=== PATIENT | female | born 1950 | race Hispanic/Latino ===

== ENCOUNTER 2020-06-15 03:39 | Emergency (ER) | payer OTHER, MEDICARE ==
[2020-06-15 03:54] LABS: BASOPHILS % (AUTO) 0.2 % (0.0-5.0); EOSINOPHILS % (AUTO) 1.7 % (0.0-8.0); HEMATOCRIT 35.3 % (36-48); LYMPHOCYTES % (AUTO) 33.1 % (21.0-51.0); MEAN CORPUSCULAR HEMOGLOBIN 32.3 pg (27.0-33.0); MEAN CORPUSCULAR HGB CONC 34.3 g/dL (32.0-36.0); MEAN CORPUSCULAR VOLUME 94.1 fL (79-99); MONOCYTES % (AUTO) 7.2 % (3.0-13.0); NEUTROPHILS % (AUTO) 57.6 % (40.0-77.0); PLATELET COUNT (AUTO) 213 K/uL (130-400); RED BLOOD CELL COUNT(AUTO) 3.75 MIL/uL (4.00-5.50); RED CELL DISTRIBUTION WIDTH 12.9 % (11.0-15.5); WHITE BLOOD COUNT (AUTO) 12.2 K/uL (4.8-10.8)
[2020-06-15 03:56] LABS: APPEARANCE,URINE Cloudy (CLEAR); BILIRUBIN,URINE Negative (NEGATIVE); COLOR,URINE Orange (YELLOW); GLUCOSE, URINE (UA) Negative (NEGATIVE); KETONES,URINE Negative (NEGATIVE); LEUKOCYTE ESTERASE ,URINE Large (NEGATIVE); NITRATE,URINE Negative (NEGATIVE); OCCULT BLOOD,URINE Large (NEGATIVE); PROTEIN,URINE POS 2+ mg/dL (NEGATIVE); UROBILINOGEN,URINE 0.2 mg/dL (0.2-1.0)
[2020-06-15] MEDS ORDERED: FAMOTIDINE/PF 20 MG/2 ML VIAL IV ONE (04:02)
[2020-06-15] MEDS ORDERED: ONDANSETRON HCL 4 MG/2 ML VIAL ONE (04:02)
[2020-06-15] MEDS ORDERED: SODIUM CHLORIDE 0.9% 1000ML 1,000 ML IV ONE (04:03)
[2020-06-15 04:04] LABS: CREATININE 1.1 mg/dL (0.5-1.5); POTASSIUM 3.5 mmol/L (3.5-5.1)
[2020-06-15 04:06] LABS: INR 0.93 (0.85-1.15); PROTHROMBIN TIME 10.1 SEC (9.6-11.6)
[2020-06-15 04:08] LABS: ALBUMIN 3.7 g/dL (3.5-5.0); BILIRUBIN,TOTAL 0.6 mg/dL (0.2-1.0); TOTAL PROTEIN, SERUM 8.1 g/dL (6.0-8.3)
[2020-06-15 04:18] LABS: BACTERIA,URINE Moderate /HPF (None Seen); MUCUS,URINE None Seen LPF (None Seen); SQUAMOUS EPITHELIAL CELL,UR None Seen /HPF (0-2); WBC,URINE 51-100 /HPF (0-1)
[2020-06-15] MEDS ORDERED: CEFTRIAXONE SODIUM 1 GM ONE (05:04)
[2020-06-15] MEDS ORDERED: SODIUM CHLORIDE 0.9% 50 ML IV ONE (05:05)
== END 2020-06-15 07:22 | disposition short-term general hospital (02) ==
LOC: EDH 03:39
DX: U07.1 COVID-19 (principal); K46.0 Unspecified abdominal hernia with obstruction, without gangrene; K43.6 Other and unspecified ventral hernia with obstruction, without gangrene; E78.00 Pure hypercholesterolemia, unspecified; Z90.49 Acquired absence of other specified parts of digestive tract; Z90.710 Acquired absence of both cervix and uterus
CPT/HCPCS: 36415; 74176; 80053; 81001; 83690; 84484; 85025; 85610; 85730; 87077; 87088; 87186; 87426; 93005; 96374; 96375; 99285; J0696; J2405; J3490; J7030; U0003

== ENCOUNTER 2022-07-14 07:40 | Observation (INO) | payer OTHER, MEDICARE ==
[2022-07-13 14:54] VITALS: BP 138/60
[2022-07-13 15:13] LABS: BASOPHILS % (AUTO) 0.3 % (0.0-5.0); EOSINOPHILS % (AUTO) 2.2 % (0.0-8.0); HEMATOCRIT 31.6 % (36-48); LYMPHOCYTES % (AUTO) 43.4 % (21.0-51.0); MEAN CORPUSCULAR HEMOGLOBIN 31.3 pg (27.0-33.0); MEAN CORPUSCULAR HGB CONC 32.9 g/dL (32.0-36.0); MEAN CORPUSCULAR VOLUME 95.2 fL (79-99); MONOCYTES % (AUTO) 7.4 % (3.0-13.0); NEUTROPHILS % (AUTO) 46.4 % (40.0-77.0); PLATELET COUNT (AUTO) 227 K/uL (130-400); RED BLOOD CELL COUNT(AUTO) 3.32 MIL/uL (4.00-5.50); RED CELL DISTRIBUTION WIDTH 13.8 % (11.0-15.5); WHITE BLOOD COUNT (AUTO) 7.2 K/uL (4.8-10.8)
[2022-07-13 15:31] LABS: APPEARANCE,URINE CLEAR (CLEAR); BILIRUBIN,URINE NEGATIVE (NEGATIVE); COLOR,URINE LIGHT-YELLOW (YELLOW); GLUCOSE, URINE (UA) NEGATIVE (NEGATIVE); KETONES,URINE NEGATIVE (NEGATIVE); LEUKOCYTE ESTERASE ,URINE 500 Leu/uL (NEGATIVE); NITRATE,URINE NEGATIVE (NEGATIVE); OCCULT BLOOD,URINE SMALL (NEGATIVE); PH,URINE 5.5 (5.0-8.0); PROTEIN,URINE 20 mg/dL (NEGATIVE); UROBILINOGEN,URINE 0.2 mg/dL (0.2-1.0)
[2022-07-13 15:36] LABS: BACTERIA,URINE FEW /HPF (None Seen); MUCUS,URINE RARE LPF (None Seen); SQUAMOUS EPITHELIAL CELL,UR FEW /HPF (0-2); WBC,URINE >100 /HPF (0-1)
[2022-07-13 15:38] LABS: INR 0.99 (0.85-1.15); PROTHROMBIN TIME 10.8 SEC (9.6-11.6)
[2022-07-13 15:40] LABS: PARTIAL THROMBOPLASTIN TIME 28.6 SEC (26.3-35.5)
[2022-07-13 15:53] LABS: ALBUMIN 3.5 g/dL (3.5-5.0); CARBON DIOXIDE 24 mmol/L (21-32); CHLORIDE 106 mmol/L (101-111); CREATININE 0.9 mg/dL (0.5-1.5); CRP QUANTITATIVE < 2.00 mg/L (0.00-9.0); GLOMERULAR FILTR. RATE CALC 65 mL/min (>60); GLUCOSE,RANDOM 96 mg/dL (70-105); POTASSIUM 3.5 mmol/L (3.5-5.1); SODIUM SERUM 141 mmol/L (136-145); UREA NITROGEN, BLOOD 17 mg/dL (7-18)
[2022-07-14] VITALS (24 sets, daily range): BP systolic 12–165; BP diastolic 29–95
[~2022-07-14] VITALS: Ht 157.5 cm; Wt 79.7 kg
[~2022-07-14 07:40] MED LIST: AEC81 PO; AMLO-258 PO; ASCO100031 PO; CEFAZOLIN SODIUM 2 GM VIAL IVPB SCH; CHOL500045 PO; IBUP-2784 PO; LEVO50CA4 PO; LOSA100T58 PO; NITR100C9 PO; OXYB5TAB15 PO; PRED5TAB PO; ROSU20TA31 PO
[2022-07-14] MEDS ORDERED: LACTATED RINGERS 1000ML 1,000 ML IV ONE (08:07)
[2022-07-14] MEDS ORDERED: LATA7.5D OU (08:35)
[2022-07-14] MEDS ORDERED: TRANEXAMIC ACID 1000MG/10ML ONE (08:50)
[2022-07-14] MEDS ORDERED: ROPIVACAINE 0.5% 5MG/ML 30ML IJ ONE ×2 (08:50→12:32)
[2022-07-14] MEDS ORDERED: KETOROLAC 30MG VIAL (30MG/ML) ONE ×2 (08:51→11:24)
[2022-07-14] MEDS ORDERED: LIDOCAINE PF 100MG/5ML (2%) SYRINGE 5ML ONE (11:22)
[2022-07-14] MEDS ORDERED: DEXAMETHASONE SOD PHOSPHATE 4 MG/ML 1ML VIAL ONE (11:22)
[2022-07-14] MEDS ORDERED: PROPOFOL 10 MG/ML 20ML VIAL IV ONE (11:22)
[2022-07-14] MEDS ORDERED: MIDAZOLAM HCL 1 MG/ML 2ML VIAL ONE (11:23)
[2022-07-14] MEDS ORDERED: ONDANSETRON 4MG INJ ONE ×2 (11:23→14:29)
[2022-07-14] MEDS ORDERED: PHENYLEPHRINE HCL 10 MG/ML 1ML VIAL IV ONE (11:23)
[2022-07-14] MEDS ORDERED: FENTANYL CITRATE PF 50 MCG/1 ML 2ML VIAL ONE (11:24)
[2022-07-14] MEDS ORDERED: CEFAZOLIN SODIUM 2 GM VIAL IVPB ONE (12:15)
[2022-07-14] MEDS ORDERED: TRANEXAMIC ACID 1000MG/10ML IV ONE ×2 (12:18→13:29)
[2022-07-14] MEDS ORDERED: KETOROLAC 30MG VIAL (30MG/ML) IVP ONE (12:33)
[2022-07-14] MEDS ORDERED: GLYCOPYRROLATE 1 MG/5 ML SYRINGE ONE (13:17)
[2022-07-14] MEDS ORDERED: KETOROLAC 15MG/ML VIAL (15MG/ML) IV PRN ×2 (14:00)
[2022-07-14] MEDS ORDERED: POTASSIUM CHLORIDE 10% ELIXIR 20 MEQ/15 ML UDCUP PO PRN (14:00)
[2022-07-14] MEDS ORDERED: KCL 20 MEQ ERTAB PO PRN (14:00)
[2022-07-14] MEDS ORDERED: CYCLOBENZAPRINE HCL 10 MG TABLET PO PRN (14:00)
[2022-07-14] MEDS ORDERED: DiphenhydrAMINE HCL 50 MG/ML VIAL IVP PRN (14:00)
[2022-07-14] MEDS ORDERED: LIDOCAINE HCL-MPF 1% 2ML VIAL IV PRN (14:00)
[2022-07-14] MEDS ORDERED: POTASSIUM CHLORIDE 20MEQ/100ML 100 ML IV PRN (14:00)
[2022-07-14] MEDS ORDERED: FERROUS FUMARATE 324 MG TABLET PO PRN (14:00)
[2022-07-14] MEDS ORDERED: ONDANSETRON 4MG INJ IVP PRN (14:00)
[2022-07-14] MEDS ORDERED: MEPERIDINE-PF 25 MG/ML SYG ONE (14:29)
[2022-07-14] MEDS: 0.9%NACL 1000ML 1,000 ML IV SCH (16:47)
[2022-07-14] MEDS: DOCUSATE SODIUM 100 MG CAP PO SCH (16:47)
[2022-07-14] MEDS: GABAPENTIN 100 MG CAPSULE PO SCH ×2 (16:47→20:09)
[2022-07-14] MEDS: HYDROCODONE/ACETAMINOPHEN 5/325 MG TAB PO PRN (16:48)
[2022-07-14] MEDS: CEFAZOLIN SODIUM 1 GM VIAL IVP SCH (18:31)
[2022-07-14] MEDS: NITROFURANTOIN MONOHYD/M-CRYST 100 MG CAPSULE PO SCH (20:10)
[2022-07-14] MEDS: ASCORBIC ACID 500 MG TAB PO SCH (20:10)
[2022-07-14] MEDS: PREDNISONE 5 MG TABLET PO SCH (20:11)
[2022-07-14] MEDS: LATANOPROST 2.5 ML DROPS OU SCH (20:20)
[2022-07-14] MEDS: VITAMIN D 125MCG PO SCH (20:20)
[2022-07-15] MEDS: HYDROCODONE/ACETAMINOPHEN 5/325 MG TAB PO PRN ×4 (00:07→21:07)
[2022-07-15 00:11] VITALS: BP 132/77
[2022-07-15] MEDS: CEFAZOLIN SODIUM 1 GM VIAL IVP SCH (02:59)
[2022-07-15 03:39] VITALS: BP 147/70
[2022-07-15 05:18] LABS: HEMATOCRIT 27.4 % (36-48); MEAN CORPUSCULAR HEMOGLOBIN 31.5 pg (27.0-33.0); MEAN CORPUSCULAR HGB CONC 33.2 g/dL (32.0-36.0); MEAN CORPUSCULAR VOLUME 94.8 fL (79-99); RED BLOOD CELL COUNT(AUTO) 2.89 MIL/uL (4.00-5.50); RED CELL DISTRIBUTION WIDTH 13.6 % (11.0-15.5); WHITE BLOOD COUNT (AUTO) 11.4 K/uL (4.8-10.8)
[2022-07-15 05:32] LABS: CREATININE 0.9 mg/dL (0.5-1.5); POTASSIUM 3.9 mmol/L (3.5-5.1)
[2022-07-15] MEDS: LEVOTHYROXINE 50 MCG TABLET PO SCH (06:24)
[2022-07-15 08:00] VITALS: BP 117/59
[2022-07-15] MEDS: ASPIRIN 325MG TAB PO SCH (08:10)
[2022-07-15] MEDS: POLYETHYLENE GLYCOL 3350 17 GM POWD.PACK PO SCH (08:10)
[2022-07-15] MEDS: GABAPENTIN 100 MG CAPSULE PO SCH ×3 (08:10→19:30)
[2022-07-15] MEDS: NITROFURANTOIN MONOHYD/M-CRYST 100 MG CAPSULE PO SCH ×2 (08:10→19:30)
[2022-07-15] MEDS: AMLODIPINE 5 MG TAB PO SCH (08:10)
[2022-07-15] MEDS: 0.9%NACL 1000ML 1,000 ML IV SCH ×2 (10:00)
[2022-07-15 11:45] VITALS: BP 128/56
[2022-07-15] MEDS: LOSARTAN 100 MG TABLET PO SCH (12:00)
[2022-07-15] MEDS: DOCUSATE SODIUM 100 MG CAP PO SCH (14:00)
[2022-07-15] MEDS: CALCIUM CARB 500MG PO PRN ×2 (15:22→19:31)
[2022-07-15 15:40] VITALS: BP 138/63
[2022-07-15] MEDS: PREDNISONE 5 MG TABLET PO SCH (19:30)
[2022-07-15] MEDS: ASCORBIC ACID 500 MG TAB PO SCH (19:30)
[2022-07-15] MEDS: LATANOPROST 2.5 ML DROPS OU SCH (19:31)
[2022-07-15] MEDS: VITAMIN D 125MCG PO SCH (19:31)
[2022-07-15 20:00] VITALS: BP 143/51
[2022-07-16] VITALS: BP 125/59
[2022-07-16 04:00] VITALS: BP 148/60
[2022-07-16] MEDS: LEVOTHYROXINE 50 MCG TABLET PO SCH (05:27)
[2022-07-16] MEDS: HYDROCODONE/ACETAMINOPHEN 5/325 MG TAB PO PRN ×2 (05:28→18:13)
[2022-07-16 08:00] VITALS: BP 137/70
[2022-07-16] MEDS: NITROFURANTOIN MONOHYD/M-CRYST 100 MG CAPSULE PO SCH (08:39)
[2022-07-16] MEDS: ASPIRIN 325MG TAB PO SCH (08:39)
[2022-07-16] MEDS: GABAPENTIN 100 MG CAPSULE PO SCH ×2 (08:39→14:46)
[2022-07-16] MEDS: AMLODIPINE 5 MG TAB PO SCH (08:39)
[2022-07-16] MEDS: POLYETHYLENE GLYCOL 3350 17 GM POWD.PACK PO SCH (08:39)
[2022-07-16 11:17] VITALS: BP 153/72
[2022-07-16] MEDS: LOSARTAN 100 MG TABLET PO SCH (12:48)
[2022-07-16] MEDS: DOCUSATE SODIUM 100 MG CAP PO SCH (14:00)
[2022-07-16] MEDS ORDERED: ASPI-1026 PO (14:50)
[2022-07-16] MEDS ORDERED: POLY17PO4 PO (14:50)
[2022-07-16] MEDS ORDERED: DOCU-116 PO (14:50)
[2022-07-16] MEDS ORDERED: HYDR-4060 PO (14:50)
[2022-07-16] MEDS ORDERED: CYCL-309 PO (14:50)
[2022-07-16] MEDS ORDERED: GABA100C PO (14:50)
[2022-07-17] MEDS ORDERED: BISACODYL 10 MG SUPP.RECT RC PRN (14:00)
== END 2022-07-16 18:50 ==
LOC: DAH 07:40 → DAHIP 07:41 → DAH 07:41 → 4BH 16:26
PROVIDERS: ADMIT Student in an Organized Health Care Education/Training Program; ATTEND Student in an Organized Health Care Education/Training Program
DX: M17.11 Unilateral primary osteoarthritis, right knee (principal); Z20.822 Contact with and (suspected) exposure to COVID-19; M06.9 Rheumatoid arthritis, unspecified; Z79.899 Other long term (current) drug therapy
CPT/HCPCS: 82040; 80048 ×2; 85025; 85610; 85730; 87088; 84134; 86140; 87426; 81001; 36415 ×2; 93005; 87641; 27447; 96374; 96375; 82948 ×10; 73560; 97039 ×4; 96376; 85027; 97161; 97116 ×3; 97530 ×4; J1100; G0378 ×51; A4663; A4215 ×2; J7120; J3010; J0690 ×4; J3490 ×4; J7512 ×2; J2001; J2250; J2704; J2405 ×2; J1885 ×4; J2175; J2795 ×2; J2370; G0168; A4649 ×3; C1776; A6255; A5120; A4223; A4222; A4221

== ENCOUNTER → 2022-08-17 | Outpatient (CLI) | payer OTHER, MEDICARE ==
[~2022-08-17] MED LIST changes: -AEC81 PO; +ASPI-1026 PO; -CEFAZOLIN SODIUM 2 GM VIAL IVPB SCH; +CYCL-309 PO; +DOCU-116 PO; +GABA100C PO; +HYDR-4060 PO; +LATA7.5D OU; +POLY17PO4 PO
== END | disposition home or self-care (01) ==
LOC: RAH 13:04
PROVIDERS: ATTEND Student in an Organized Health Care Education/Training Program
DX: Z47.1 Aftercare following joint replacement surgery (principal); M25.461 Effusion, right knee; Z96.651 Presence of right artificial knee joint
CPT/HCPCS: 73700

== ENCOUNTER 2023-07-22 17:58 | Emergency (ER) | payer OTHER, MEDICARE ==
[~2023-07-22] VITALS: Ht 157.5 cm; Wt 80.7 kg
[~2023-07-22 17:58] MED LIST changes: -LOSA100T58 PO; +LOSA100T59 PO; -OXYB5TAB15 PO; +OXYB5TAB20 PO; -ROSU20TA31 PO; +ROSU20TA73 PO
[2023-07-22 19:24] LABS: RAPID GROUP A STREP negative (NEGATIVE)
[2023-07-22 19:31] LABS: SARS-CoV-2, RNA, NAAT NEGATIVE SARS CoV-2 (NEGATIVE)
[2023-07-22 19:39] LABS: INFLUENZA TYPE A Negative For Type A (NEGATIVE); INFLUENZA TYPE B Negative For Type B (NEGATIVE)
[2023-07-22 20:13] VITALS: BP 151/66; PULSE 80; RESP 17; O2SAT 96
[2023-07-22 20:34] LABS: ADD UA MICROSCOPIC YES; APPEARANCE,URINE CLOUDY (CLEAR); BILIRUBIN,URINE NEGATIVE (NEGATIVE); COLOR,URINE LIGHT-YELLOW (YELLOW); GLUCOSE, URINE (UA) NEGATIVE (NEGATIVE); KETONES,URINE NEGATIVE (NEGATIVE); LEUKOCYTE ESTERASE ,URINE 250 Leu/uL (NEGATIVE); NITRATE,URINE 2+ (NEGATIVE); OCCULT BLOOD,URINE LARGE (NEGATIVE); PH,URINE 5.5 (5.0-8.0); PROTEIN,URINE 10 mg/dL (NEGATIVE); UROBILINOGEN,URINE 0.2 mg/dL (0.2-1.0)
[2023-07-22 20:47] LABS: BACTERIA,URINE RARE /HPF (None Seen); MUCUS,URINE RARE LPF (None Seen); RBC,URINE 26-50 /HPF (0-1); SQUAMOUS EPITHELIAL CELL,UR MOD /HPF (0-2); WBC,URINE 51-100 /HPF (0-1)
== END 2023-07-22 21:12 | disposition left against medical advice (07) ==
LOC: EDH 17:58
DX: Z53.21 Procedure and treatment not carried out due to patient leaving prior to being seen by health care provider (principal); Z79.899 Other long term (current) drug therapy; Z20.822 Contact with and (suspected) exposure to COVID-19
CPT/HCPCS: 81001; 87077; 87088; 87186; 87635; 87804; 87880; 99281

== ENCOUNTER → 2023-07-27 | Outpatient (CLI) | payer OTHER, MEDICARE | END | disposition home or self-care (01) | LOC: SHCH 13:16 | PROVIDERS: ATTEND Internal Medicine Cardiovascular Disease | DX: I11.9 Hypertensive heart disease without heart failure (principal); I49.3 Ventricular premature depolarization; E78.5 Hyperlipidemia, unspecified | CPT/HCPCS: 93306 ==

== ENCOUNTER → 2023-10-06 | Outpatient (CLI) | payer OTHER, MEDICARE ==
[~2023-10-06] MED LIST changes: +IOHEXOL 350 MG/ML 100ML INFUS..BTL IV ONE
== END | disposition home or self-care (01) ==
LOC: RAH 07:40
PROVIDERS: ATTEND Internal Medicine Cardiovascular Disease
DX: I20.0 Unstable angina (principal); K80.20 Calculus of gallbladder without cholecystitis without obstruction
CPT/HCPCS: 71270; Q9967

== ENCOUNTER → 2023-12-02 | Outpatient (CLI) | payer OTHER, MEDICARE ==
[~2023-12-02] MED LIST changes: -IOHEXOL 350 MG/ML 100ML INFUS..BTL IV ONE
== END | disposition home or self-care (01) ==
LOC: SHCH 09:05
PROVIDERS: ATTEND Internal Medicine Cardiovascular Disease
DX: I70.203 Unspecified atherosclerosis of native arteries of extremities, bilateral legs (principal); I87.2 Venous insufficiency (chronic) (peripheral); I87.1 Compression of vein
CPT/HCPCS: 93925; 93970

== ENCOUNTER → 2024-05-24 | Outpatient (CLI) | payer OTHER, MEDICARE ==
[~2024-05-24] MED LIST changes: +GADOTERATE MEGLUMINE 10 MMOL/20 ML VIAL IV ONE; -ROSU20TA73 PO; +ROSU20TA98 PO
--- NOTE | 2024-05-24 15:41 | HMCIMG ---
MR HIP RIGHT WWO HISTORY: Right hip pain COMPARISON: None TECHNIQUE: MRI of the right hip was performed utilizing multiple pulse sequences in axial, coronal and sagittal planes. Patient was given 16 cc of Clariscan through intravenous route. FINDINGS: No abnormal signal intensity is seen of the visualized bony structure. No MR evidence of stress fracture, avascular necrosis or dislocation is seen. Small right hip joint space narrowing is seen. No evidence of fracture or dislocation is seen. No appreciable amount of joint effusion is seen. IMPRESSION: 1. DJD. No fracture or dislocation.
== END | disposition home or self-care (01) ==
LOC: RAH 13:01
PROVIDERS: ATTEND Physician Assistant
DX: M16.11 Unilateral primary osteoarthritis, right hip (principal); M25.551 Pain in right hip
CPT/HCPCS: 73723; A9575

== ENCOUNTER 2024-05-31 13:06 | Emergency (ER) | payer OTHER, MEDICARE ==
[~2024-05-31] VITALS: Ht 165.1 cm; Wt 77.1 kg
[~2024-05-31 13:06] MED LIST changes: -GADOTERATE MEGLUMINE 10 MMOL/20 ML VIAL IV ONE
[2024-05-31] MEDS: 0.9%NACL 1000ML 1,000 ML IV ONE (13:26)
--- NOTE | 2024-05-31 13:28 | ERN ---
General Chief Complaint: Altered Mental Status Stated Complaint: ALTERED MENTAL STATUS Time Seen by MD: 13:09 History of Present Illness Initial Comments 74-year-old female brought in by EMS for altered mentation. According to EMS, the patient was confused. Normally she is oriented, tonight she is only oriented to herself. According to family she gets frequent UTIs and we will become confused when she developed these. Patient denies any other complaints. She denies pain. Medical history: Hypertension, anemia, arthritis, frequent UTIs, DLD, hypothyroid EMS vital signs: 175/76, 76, 20, blood glucose 126. Patient received 400 L of lactated ringer CASINO MANAGER by EMS PCP: Jose Alfredo Alcaraz Allergies: Coded Allergies: No Known Drug Allergies (Verified Allergy, Unknown, 07/13/22) Home Meds Active Scripts Docusate Sodium (Colace) 100 Mg Capsule, 100 MG PO BID PRN for CONSTIPATION for 30 Days, #60 CAP 0 Refills Prov:DESIRAE AVELAR MD 07/16/22 Hydrocodone/Acetaminophen (Hydrocodon-Acetaminophen 5-325) 1 Each Tablet, 1-2 TAB PO Q6H PRN for MODERATE/SEVERE PAIN LEVEL, #56 TAB 0 Refills Prov:DESIRAE AVELAR MD 07/16/22 Polyethylene Glycol 3350 (Miralax) 17 Gm Powd.pack, 17 GM PO DAILY, #30 PACK 0 Refills Prov:DESIRAE AVELAR MD 07/16/22 Cyclobenzaprine HCl (Cyclobenzaprine HCl) 10 Mg Tablet, 5 MG PO Q8H PRN for MUSCLE SPASMS, #45 TAB 0 Refills Prov:DESIRAE AVELAR MD 07/16/22 Aspirin (Aspirin) 325 Mg Tablet, 325 MG PO DAILY, #30 TAB 0 Refills Prov:DESIRAE AVELAR MD 07/16/22 Reported Medications Mirabegron (Myrbetriq) 50 Mg Tab.er.24h, 1 TAB PO DAILY for 30 Days, #30 TAB 0 Refills 05/31/24 Nitrofurantoin Macrocrystal (Nitrofurantoin) 100 Mg Capsule, 1 CAP PO BID for 7 Days, #14 CAP 0 Refills 05/31/24 Oxybutynin Chloride (Oxybutynin Chloride) 5 Mg Tablet, 1 TAB PO DAILY for urinary discomfort for 30 Days, #60 TAB 0 Refills 05/31/24 Carvedilol (Carvedilol) 6.25 Mg Tablet, 1 TAB PO BID for 30 Days, #60 TAB 0 Refills 05/31/24 Gabapentin (Gabapentin) 100 Mg Capsule, 1 CAP PO DAILY for 30 Days, #90 CAP 0 Refills 05/31/24 Folic Acid (Folic Acid) 0.8 Mg Capsule, 1 MG PO DAILY, CAP 05/31/24 Furosemide (Furosemide) 20 Mg Tablet, 1 TAB PO BID for 30 Days, #30 TAB 0 Refills 05/31/24 Sulfasalazine (Azulfidine) 500 Mg Tablet, 1 TAB PO DAILY for 30 Days, #90 TAB 0 Refills 05/31/24 Tizanidine HCl (Tizanidine HCl) 2 Mg Tablet, 2 MG PO BID, TAB 05/31/24 Baclofen (Baclofen) 20 Mg Tablet, 1 TAB PO TID for 30 Days, #90 TAB 0 Refills 05/31/24 Latanoprost/Pf (Latanoprost 0.005% Eye Drop) 7.5 Ml Drops, 1 DROP OU HS, DROP 07/14/22 Amlodipine Besylate (Amlodipine Besylate) 10 Mg Tablet, 10 MG PO AM for 30 Days, #30 TAB 0 Refills 07/13/22 Levothyroxine Sodium (Levothyroxine) 50 Mcg Capsule, 50 MCG PO AM, CAP 07/13/22 Losartan Potassium (Losartan Potassium) 100 Mg Tablet, 100 MG PO NOON, TAB 07/13/22 Rosuvastatin Calcium (Rosuvastatin Calcium) 20 Mg Tablet, 20 MG PO HS, TAB 07/13/22 Ibuprofen (Ibuprofen 200 mg Tablet) 200 Mg Tablet, 200 MG PO TID PRN for PAIN, TAB 07/13/22 Prednisone (Prednisone) 5 Mg Tablet, 5 MG PO HS, TAB 07/13/22 Cholecalciferol (Vitamin D3) (Vitamin D3) 125 Mcg Tablet, 125 MCG PO PM, TAB 07/13/22 Ascorbic Acid (Vitamin C) 1,000 Mg Tablet, 1000 MG PO HS, TAB 07/13/22 Discontinued Reported Medications Oxybutynin Chloride (Oxybutynin Chloride) 5 Mg Tablet, 5 MG PO BID, TAB 07/13/22 Nitrofurantoin Monohyd/M-Cryst (Nitrofurantoin Brule-Mcr 100 mg) 100 Mg Capsule, 100 MG PO BID, CAP 07/13/22 Discontinued Scripts Gabapentin (Neurontin) 100 Mg Capsule, 100 MG PO TID, #90 CAP 0 Refills Prov:DESIRAE AVELAR MD 07/16/22 Past Medical History Past Medical History: Anemia, Arthritis, Hypertension, UTI Past Surgical History: Other Surgical History Other: 2 HERNIA REPAIRS ROS Dictation Unable to obtain, patient not a reliable historian. She denies any complaints currently. More altered than usual per family Physical Exam Physical Exam Dictation VITAL SIGNS: Reviewed. GENERAL APPEARANCE: Oriented to self only, confused, in no distress HEAD AND FACE: Non-traumatic. EYES: PERRL, pink conjunctivas, eyelid no trauma, anterior chamber clear. EARS: Pinnas intact and no signs of trauma or erythema. Ear canals clear and no discharge. TMs no erythema. NOSE: No discharge, no bleeding. OROPHARYNX: Mouth normal, teeth no caries, tongue pink. Pharynx clear, no erythema. Tonsils no exudates, no abscesses noted. Mucous membrane moist. NECK: Supple, non-tender, no thyromegaly, no masses, no JVD, no bruits. BREAST: Deferred. CHEST: No tenderness, no crepitus, no paradoxical movement, no retractions. LUNGS: Clear, well-ventilated, symmetric, no rales, no wheezing, no rhonchi, no stridor, good breath sounds bilaterally. HEART: Regular rate, regular rhythm, no murmur, no gallops. VASCULAR: No peripheral edema. ABDOMEN: Soft, positive bowel sounds, nondistended, no guarding, nontender, no rebound, no masses no hepatomegaly, no splenomegaly, no Goodwin's sign, no hernias. RECTAL: Deferred. GENITAL: Deferred. NEUROLOGICAL: Gross motor function intact, cranial nerves intact Kirti, able to follow commands, confused MUSCULOSKELETAL: Neck nontender, full range of motion, back nontender, full range of motion. EXTREMITIES: Nontender, full range of motion. SKIN: Color pink, dry, no turgor, no rash, no lacerations, no abrasions, no contusions. LYMPHATICS: Deferred. Results Laboratory and Microbiology Lab and Micro Result Laboratory Tests Test 05/31/24 13:29 05/31/24 13:41 White Blood Count 9.1 K/uL (4.8-10.8) Red Blood Count 3.84 MIL/uL (4.00-5.50) L Hemoglobin 12.4 g/dL (12.0-16.0) Hematocrit 37.2 % (36-48) Mean Corpuscular Volume 96.9 fL (79-99) Mean Corpuscular Hemoglobin 32.3 pg (27.0-33.0) Mean Corpuscular Hemoglobin Concent 33.3 g/dL (32.0-36.0) Red Cell Distribution Width 13.8 % (11.0-15.5) Platelet Count 264 K/uL (130-400) Mean Platelet Volume 10.7 fL (7.5-10.5) H Immature Granulocyte % (Auto) 0.3 % (0-1) Neutrophils (%) (Auto) 60.4 % (40.0-77.0) Lymphocytes (%) (Auto) 28.9 % (21.0-51.0) Monocytes (%) (Auto) 9.5 % (3.0-13.0) Eosinophils (%) (Auto) 0.6 % (0.0-8.0) Basophils (%) (Auto) 0.3 % (0.0-5.0) Neutrophils # (Auto) 5.5 K/uL (1.8-7.7) Lymphocytes # (Auto) 2.6 K/uL (1.0-4.8) Monocytes # (Auto) 0.9 K/uL (0.1-1.0) Eosinophils # (Auto) 0.05 K/uL (0.00-0.70) Basophils # (Auto) 0.03 K/uL (0.00-0.20) Absolute Immature Granulocyte (auto 0.03 K/uL (0-1) Nucleated Red Blood Cells 0.0 % (0.0-0.19) Sodium Level 146 mmol/L (136-145) H Potassium Level 3.9 mmol/L (3.5-5.1) Chloride Level 108 mmol/L (101-111) Carbon Dioxide Level 31 mmol/L (21-32) Blood Urea Nitrogen 11 mg/dL (7-18) Creatinine 0.9 mg/dL (0.5-1.0) Glomerular Filtration Rate Calc 67 mL/min (>90) Random Glucose 109 mg/dL (70-105) H Total Calcium 9.4 mg/dL (8.5-10.1) Magnesium Level 1.80 mg/dL (1.80-2.40) Ammonia < 10 umol/L (11-32) L Total Creatine Kinase 87 U/L (21-232) Troponin I High Sensitivity 15.9 ng/L (4-50) B-Type Natriuretic Peptide 277 pg/mL (0-100) H Urine Color LIGHT-YELLOW (YELLOW) Urine Appearance CLEAR (CLEAR) Urine pH 7.0 (5.0-8.0) Urine Specific Logan 1.007 (1.001-1.031) Urine Protein NEGATIVE mg/dL (NEGATIVE) Urine Glucose (UA) NEGATIVE mg/dL (NEGATIVE) Urine Ketones NEGATIVE mg/dL (NEGATIVE) Urine Occult Blood NEGATIVE (NEGATIVE) Urine Nitrate 1+ (NEGATIVE) H Urine Bilirubin NEGATIVE mg/dL (NEGATIVE) Urine Urobilinogen 0.2 mg/dL (0.2-1.0) Urine Leukocyte Esterase NEGATIVE Ector/uL Urine RBC None /HPF (0-1) Urine WBC 0-1 /HPF (0-1) Urine Squamous Epithelial Cells RARE /HPF (0-2) Urine Bacteria RARE /HPF (None Seen) MDM CC: altered mental state, weakness Independent Historian: EMS & son. Patient confused, only alert to self. Son provided much of the history. Limitations by social determinates of health: none Comorbidities: advanced age, HTN, anemia, arhtritis, frequent UTIs. Ddx: UTI, infection, dehydration, stroke, brain bleed, electrolyte abnormality, ACS, other VS: HTN, 176/76, otherwise stable. EKG (independently interpreted by me): NSR, rate 73, multifocal PVCs, LAD, delayed RWP, LVH. No STEMI. Labs (ordered & interpreted by me): CBC normal. BMP shows normal electrolytes, glucose normal. Ammonia normal, CK normal, troponin normal, BNP mildly elevated 277. CXR( independently interpreted by me): borderline cardiomegaly, no focal infiltrates. UA: 1+ nitrites, otherwise normal. CT head (independently interpreted by me): No acute bleed. Patient has a UTI. She received 1 L normal saline and a dose of IV Rocephin. I considered admission for this patient, but I had a long conversation with the son. He reports that he prefers to go home. The patient also prefers to go home. She gets very anxious in the ER in the hospital and does not want to stay at all. He has stable vital signs, she is at baseline mentation currently. She has stable labs. She is p.o. tolerant. Every dose of Rocephin here, we will discharge her with cefpodoxime and recommend PCP follow up. This is what the family prefers. I think this is reasonable this time. We will DC. REASON: altered ORDERING PHYSICIAN: RODGER BARTLETT DO PROCEDURE: CXR1VW - CHEST 1VW CHEST 1VW REASON: altered COMPARISON: 10/06/2023 FINDINGS: Single view of the chest was obtained. Lungs are clear. Heart size is normal. There is no pulmonary vascular congestion. Mediastinum and bony thorax appear unremarkable. IMPRESSION: 1. Normal single view chest x-ray. REASON: altered ORDERING PHYSICIAN: RODGER BARTLETT DO PROCEDURE: HEAD WO - CT HEAD/BRAIN W/O CONTRAST Exam: NONCONTRAST CT BRAIN REASON: altered. COMPARISON: None. TECHNIQUE: Images are obtained from vertex to the skull base. The exam was performed without IV contrast. FINDINGS: There is normal appearing brain parenchyma. There are no focal mass lesions. There is is no evidence of intracranial hemorrhage or acute stroke. Ventricles and sulci appear normal. Posterior fossa and brainstem structures are unremarkable. Paranasal sinuses and remaining extracranial soft tissues appear normal as well. IMPRESSION: 1. Normal noncontrast CT brain. ED Course Orders Procedure Category Date Status Time Ammonia LAB 05/31/24 Complete 13:09 Cardiac Panel LAB 05/31/24 Complete 13:09 Cbc With Differential LAB 05/31/24 Complete 13:09 Basic Metabolic Panel LAB 05/31/24 Complete 13:09 B-Type Natriuretic LAB 05/31/24 Complete Peptide 13:09 Magnesium LAB 05/31/24 Complete 13:09 Urinalysis Profile LAB 05/31/24 Complete 13:09 Ct Head/Brain W/O CT 05/31/24 Resulted Contrast 13:09 12 Lead Ekg Tracing- EKG 05/31/24 Logged Technical 13:09 Chest 1vw RAD 05/31/24 Resulted 13:09 0.9%Nacl 1000ml (Ns PHA 05/31/24 Complete 1000ml) 13:30 Culture Urine WAYNE 05/31/24 In Process 13:55 Ceftriaxone 1g Vial PHA 05/31/24 Complete (Rocephine 1g Inj) 14:30 Current Medications Medications (Trade) Dose Ordered Sig/Julieta Route PRN Reason Start Time Stop Time Status Last Admin Dose Admin Ceftriaxone Sodium (ROCEphine 1G INJ) 1 gm ONCE ONCE IVPB 05/31/24 14:30 05/31/24 14:31 DC Sodium Chloride 1,000 ml @ 0 mls/hr ONCE ONCE IV 05/31/24 13:30 05/31/24 13:31 DC 05/31/24 13:26 Vital Signs Date Time Temp Pulse Resp B/P (MAP) Pulse Ox O2 Delivery O2 Flow Rate FiO2 05/31/24 13:43 69 18 176/101 100 Room Air* 0 21 05/31/24 13:07 99.0 80 20 176/76 99 Room Air DX & DISP Disposition: Discharge Departure Impression: Primary Impression: UTI (urinary tract infection) Condition: Stable Scripts Cefpodoxime Proxetil (Cefpodoxime Proxetil) 200 Mg Tablet 200 MG PO BID for 10 Days, #20 TAB Prov: RODGER BARTLETT DO 05/31/24 Additional Instructions: Jordan is a has a urinary tract infection. This may be causing her symptoms. Her vital signs have been stable in the ER. Her lab work (CBC, BNP, liver enzymes, lipase, troponin) is stable. Her urinalysis shows signs of infection. The CT scan of her head is normal. Her chest x-ray and EKG are stable. She received a dose of IV Rocephin (antibiotic) here in the emergency department. I have prescribed cefpodoxime, which is an antibiotic. She should take this twice per day for the next ten days. I recommend that she follows up with her primary doctor in 72 hours for re- evaluation. Please return to the emergency department if you have any concerns. Referrals: JOSE ALFREDO ALCARAZ MD (PCP) RODGER BARTLETT DO May 31, 2024 13:28
[2024-05-31 13:34] LABS: BASOPHILS # (AUTO) 0.03 K/uL (0.00-0.20); BASOPHILS % (AUTO) 0.3 % (0.0-5.0); EOSINOPHILS # (AUTO) 0.05 K/uL (0.00-0.70); EOSINOPHILS % (AUTO) 0.6 % (0.0-8.0); HEMATOCRIT 37.2 % (36-48); IMMATURE GRANULOCYTE ABSOLUTE 0.03 K/uL (0-1); LYMPHOCYTES # (AUTO) 2.6 K/uL (1.0-4.8); LYMPHOCYTES % (AUTO) 28.9 % (21.0-51.0); MEAN CORPUSCULAR HEMOGLOBIN 32.3 pg (27.0-33.0); MEAN CORPUSCULAR HGB CONC 33.3 g/dL (32.0-36.0); MEAN CORPUSCULAR VOLUME 96.9 fL (79-99); MONOCYTES # (AUTO) 0.9 K/uL (0.1-1.0); MONOCYTES % (AUTO) 9.5 % (3.0-13.0); NEUTROPHILS # (AUTO) 5.5 K/uL (1.8-7.7); NEUTROPHILS % (AUTO) 60.4 % (40.0-77.0); PLATELET COUNT (AUTO) 264 K/uL (130-400); RED BLOOD CELL COUNT(AUTO) 3.84 MIL/uL (4.00-5.50); RED CELL DISTRIBUTION WIDTH 13.8 % (11.0-15.5); WHITE BLOOD COUNT (AUTO) 9.1 K/uL (4.8-10.8)
[2024-05-31 13:45] LABS: CARBON DIOXIDE 31 mmol/L (21-32); CHLORIDE 108 mmol/L (101-111); CREATININE 0.9 mg/dL (0.5-1.0); GLOMERULAR FILTR. RATE CALC 67 mL/min (>90); GLUCOSE,RANDOM 109 mg/dL (70-105); POTASSIUM 3.9 mmol/L (3.5-5.1); SODIUM SERUM 146 mmol/L (136-145); UREA NITROGEN, BLOOD 11 mg/dL (7-18)
[2024-05-31 13:53] LABS: CREATINE KINASE, TOTAL 87 U/L (21-232)
[2024-05-31 13:54] LABS: APPEARANCE,URINE CLEAR (CLEAR); BILIRUBIN,URINE NEGATIVE (NEGATIVE); COLOR,URINE LIGHT-YELLOW (YELLOW); GLUCOSE, URINE (UA) NEGATIVE (NEGATIVE); KETONES,URINE NEGATIVE (NEGATIVE); LEUKOCYTE ESTERASE ,URINE NEGATIVE Leu/uL (NEGATIVE); NITRATE,URINE 1+ (NEGATIVE); OCCULT BLOOD,URINE NEGATIVE (NEGATIVE); PROTEIN,URINE NEGATIVE (NEGATIVE); UROBILINOGEN,URINE 0.2 mg/dL (0.2-1.0)
[2024-05-31 13:55] LABS: ADD UA MICROSCOPIC YES
[2024-05-31 13:55] LABS: B-TYPE NATRIURETIC PEPTIDE 277 pg/mL (0-100)
[2024-05-31 13:59] LABS: AMMONIA < 10 umol/L (11-32)
[2024-05-31 14:01] LABS: BACTERIA,URINE RARE /HPF (None Seen); MUCUS,URINE RARE LPF (None Seen); SQUAMOUS EPITHELIAL CELL,UR RARE /HPF (0-2); WBC,URINE 0-1 /HPF (0-1)
[2024-05-31] MEDS ORDERED: MIRA50TA PO (14:07)
[2024-05-31] MEDS ORDERED: OXYB5TAB20 PO (14:07)
[2024-05-31] MEDS ORDERED: GABA-529 PO (14:07)
[2024-05-31] MEDS ORDERED: BACL20TA PO (14:07)
[2024-05-31] MEDS ORDERED: FURO20TA4 PO (14:07)
[2024-05-31] MEDS ORDERED: TIZA-194 PO (14:07)
[2024-05-31] MEDS ORDERED: SULF500T PO (14:07)
[2024-05-31] MEDS ORDERED: FOLI0.8C PO (14:07)
[2024-05-31] MEDS ORDERED: CARV6.25 PO (14:07)
[2024-05-31] MEDS ORDERED: NITR100C PO (14:07)
--- NOTE | 2024-05-31 14:20 | HMCIMG ---
CHEST 1VW REASON: altered COMPARISON: 10/06/2023 FINDINGS: Single view of the chest was obtained. Lungs are clear. Heart size is normal. There is no pulmonary vascular congestion. Mediastinum and bony thorax appear unremarkable. IMPRESSION: 1. Normal single view chest x-ray.
--- NOTE | 2024-05-31 14:41 | HMCIMG ---
Exam: NONCONTRAST CT BRAIN REASON: altered. COMPARISON: None. TECHNIQUE: Images are obtained from vertex to the skull base. The exam was performed without IV contrast. FINDINGS: There is normal appearing brain parenchyma. There are no focal mass lesions. There is is no evidence of intracranial hemorrhage or acute stroke. Ventricles and sulci appear normal. Posterior fossa and brainstem structures are unremarkable. Paranasal sinuses and remaining extracranial soft tissues appear normal as well. IMPRESSION: 1. Normal noncontrast CT brain. CT was performed with one or more following dose reduction techniques: automated exposure control, adjustment of the mA and kv according to patient's size, or use of a iterative reconstruction technique.
[2024-05-31] MEDS ORDERED: CEFP200T14 PO (15:07)
--- NOTE | 2024-05-31 15:38 | EKG ---
[facility] Test Date: 2024-05-31 Test Time: 13:29:03 Pat Name: EDWARD THOMAS Department: [facility] Room: Gender: F Home Office Claims Examiner: COY MARREROB: 1950 Requested By: RODGER BARTLETT Order Number: [id number] Reading MD: Yves Dueñas Measurements Intervals Jackson Rate: 73 P: 44 CO: 144 QRS: -48 QRSD: 121 T: 86 QT: 398 QTc: 442 Interpretive Statements Sinus rhythm Multiform ventricular premature complexes Nonspecific IVCD with LAD Left ventricular hypertrophy ST elevation, consider inferior injury Compared to ECG 07/13/2022 14:49:33 Ventricular premature complex(es) now present Intraventricular conduction delay now present ST (T wave) deviation now present Myocardial infarct finding now present Q waves no longer present Electronically Signed On 05-31-2024 19:35:33 IT GENERALIST by Yves Dueñas Please click the below link to view image of tracing.
[2024-05-31] MEDS: cefTRIAXone 1G VIAL IVPB ONE (15:47)
[2024-05-31] MEDS: hydrALAZine 20MG/ML VIAL IV ONE (15:50)
[2024-05-31 16:16] VITALS: BP 175/78; PULSE 80; RESP 16; TEMP 98.2; O2SAT 99
--- NOTE | 2024-05-31 16:17 | NUR ---
DISCHARGE VITALS REVIEW WITH MD. PATIENT CLEARED TO DISCHARGE HOME WITH ABX TREATMENT. PATIENT EDUCATION PROVIDED ON ABX COMPLIANCE. PATIENTS FAMILY VERBALIZES UNDERSTANDING AND STATES NO ADDITIONAL QUESTIONS AT THIS TIME.
== END 2024-05-31 16:18 | disposition home or self-care (01) ==
LOC: EDH 13:06
DX: N39.0 Urinary tract infection, site not specified (principal); D64.9 Anemia, unspecified; E03.9 Hypothyroidism, unspecified; I10 Essential (primary) hypertension; M19.90 Unspecified osteoarthritis, unspecified site; Z79.52 Long term (current) use of systemic steroids; Z79.82 Long term (current) use of aspirin; Z79.899 Other long term (current) drug therapy; Z98.890 Other specified postprocedural states
CPT/HCPCS: 99285; 96374; 70450; 96361; 71045; 96375; 82550; 83735; 84484; 80048; 83880; 82140; 85025; 87086 ×2; 87186; 81001; 36415; 93005; J7030; J0360; J0696

== ENCOUNTER 2024-12-12 05:51 | Observation (INO) | payer OTHER, MEDICAID ==
[2024-12-07 13:35] LABS: BASOPHILS # (AUTO) 0.06 K/uL (0.00-0.20); BASOPHILS % (AUTO) 0.5 % (0.0-5.0); EOSINOPHILS # (AUTO) 0.14 K/uL (0.00-0.70); EOSINOPHILS % (AUTO) 1.2 % (0.0-8.0); HEMATOCRIT 33.7 % (36-48); IMMATURE GRANULOCYTE ABSOLUTE 0.03 K/uL (0-1); LYMPHOCYTES # (AUTO) 4.9 K/uL (1.0-4.8); LYMPHOCYTES % (AUTO) 43.9 % (21.0-51.0); MEAN CORPUSCULAR HEMOGLOBIN 31.9 pg (27.0-33.0); MEAN CORPUSCULAR HGB CONC 32.3 g/dL (32.0-36.0); MEAN CORPUSCULAR VOLUME 98.5 fL (79-99); MONOCYTES # (AUTO) 0.9 K/uL (0.1-1.0); MONOCYTES % (AUTO) 7.8 % (3.0-13.0); NEUTROPHILS # (AUTO) 5.2 K/uL (1.8-7.7); NEUTROPHILS % (AUTO) 46.3 % (40.0-77.0); PLATELET COUNT (AUTO) 209 K/uL (130-400); RED BLOOD CELL COUNT(AUTO) 3.42 MIL/uL (4.00-5.50); RED CELL DISTRIBUTION WIDTH 13.8 % (11.0-15.5); WHITE BLOOD COUNT (AUTO) 11.2 K/uL (4.8-10.8)
[2024-12-07 13:43] LABS: ALBUMIN 3.5 g/dL (3.5-5.0); CREATININE 0.8 mg/dL (0.5-1.0); POTASSIUM 3.3 mmol/L (3.5-5.1)
[2024-12-07 13:47] LABS: INR 1.08 (0.85-1.15); PROTHROMBIN TIME 11.4 SEC (9.6-11.6)
[2024-12-07 13:49] LABS: PARTIAL THROMBOPLASTIN TIME 25.6 SEC (26.3-35.5)
[2024-12-07 14:55] VITALS: BP_SYST 191; BP_SYST 201; BP_SYST 224; BP_DIAS 78; BP_DIAS 80; PULSE 60; RESP 18; TEMP 97.2
--- NOTE | 2024-12-11 13:15 | NUR ---
REPORTED CBC RESULTS (WBC: 11.2, H&H: 10.9/33.7) TO DR. AVELAR. AWAITING RESPONSE
--- NOTE | 2024-12-11 15:15 | NUR ---
DR. AVELAR AWARE OF CBC RESULTS. OK TO PROCEED
[~2024-12-12] VITALS: Ht 160 cm; Wt 78.0 kg
[2024-12-12] VITALS (32 sets, daily range): BP systolic 109–185; BP diastolic 50–95; PULSE 47–63; RESP 13–20; TEMP 96.9–98.4; O2SAT 96–99
[~2024-12-12 05:51] MED LIST changes: +BACL20TA PO; +CARV6.25 PO; +CEFP200T14 PO; +FOLI0.8C PO; +FURO20TA4 PO; +GABA-529 PO; -GABA100C PO; -LEVO50CA4 PO; +LEVO50CA5 PO; +MIRA50TA PO; +NITR100C PO; -NITR100C9 PO; +SULF500T PO; +TIZA-194 PO
[2024-12-12] MEDS ORDERED: BUPIvacaine/PF 0.5% 30ML VIAL ONE (06:36)
[2024-12-12] MEDS ORDERED: ROPivacaine 0.5% 5MG/ML 30ML ONE (06:41)
[2024-12-12] MEDS ORDERED: ketaMINE 50MG/ML SYRINGE 50 MG/ML DISP.SYRIN ONE (06:42)
[2024-12-12] MEDS ORDERED: LIDOCAINE PF 100MG/5ML (2%) SYRINGE 5ML ONE (06:47)
[2024-12-12] MEDS ORDERED: proPOFol 10 MG/ML 20ML VIAL IV ONE (06:48)
[2024-12-12] MEDS ORDERED: rocuRONium bROMide 10MG/1ML 5ML VL ONE (06:48)
[2024-12-12] MEDS ORDERED: FENTanyl CITRate PF 50 MCG/1 ML 2ML VIAL ONE (06:48)
[2024-12-12 06:56] LABS: APPEARANCE,URINE CLOUDY (CLEAR); BILIRUBIN,URINE NEGATIVE (NEGATIVE); COLOR,URINE YELLOW (YELLOW); GLUCOSE, URINE (UA) NEGATIVE (NEGATIVE); KETONES,URINE NEGATIVE (NEGATIVE); LEUKOCYTE ESTERASE ,URINE 250 Leu/uL (NEGATIVE); NITRATE,URINE 1+ (NEGATIVE); PH,URINE 5.5 (5.0-8.0); PROTEIN,URINE 10 mg/dL (NEGATIVE); UROBILINOGEN,URINE 0.2 mg/dL (0.2-1.0)
[2024-12-12 06:59] LABS: MUCUS,URINE RARE LPF (None Seen); OTHER CASTS, URINE 3 /LPF (None Seen); SQUAMOUS EPITHELIAL CELL,UR MANY /HPF (0-2); WBC,URINE 26-50 /HPF (0-1)
[2024-12-12 07:00] LABS: BACTERIA,URINE Moderate /HPF (None Seen)
[2024-12-12] MEDS ORDERED: LATA2.5D14 OP (07:16)
[2024-12-12] MEDS ORDERED: FOLI1 PO (07:16)
[2024-12-12] MEDS ORDERED: PREG25CA19 PO (07:16)
[2024-12-12] MEDS ORDERED: CARV25TA PO (07:16)
[2024-12-12] MEDS ORDERED: MELO-106 PO (07:16)
--- NOTE | 2024-12-12 07:25 | DS ---
Discharge Summary Hospital Course Summary: The patient was admitted to the hospital postoperatively on 12/12/2024 after undergoing left total knee arthroplasty. They did well with routine postoperative pain control. They worked well with physical therapy. They developed some acute blood loss anemia but remained asymptomatic. The hospital course was otherwise uncomplicated. They were subsequently able to be discharged on postoperative day [] once discharge arrangements were made with SNF. Grades 1 6 Tutor(s): None Procedure(s): Left total knee arthroplasty, 12/12/2024 Assessment/Plan: ASSESSMENT: Status post left total knee arthroplasty Acute blood loss anemia PLAN: See discharge instructions Discharge Instructions: Begin working with physical therapy at the facility. Dressing may be removed 12/14/2024 and left open to air. Showers ok allowing soap and water to run over the wound. Pat dry. Do not submerge wound in tub/pool. Do not apply ointments. Do not apply Betadine. Do not apply peroxide. Ice packs to decrease pain/swelling. Prescriptions have been sent to the pharmacy: *Townsend 5/325mg 1-2 tab every 6 hours as needed for severe pain. (please call for refills) Cyclobenzaprine 5mg 1 tab every 8 hours as needed for muscle spasm pain. Gabapentin 100mg 1 tab every 8 hours (may discontinue if drowsy). Colace 100mg 1 tab orally twice a day as needed for constipation. Aspirin 325mg twice a day for 30 days to prevent blood clots. Call for a follow-up appointment in 2-3 weeks at [facility]. Home Medications: Reported Medications Folic Acid (Folvite) 1 Mg Tab, 1 MG PO AM, TAB 12/12/24 Carvedilol (Carvedilol) 25 Mg Tablet, 25 MG PO AM, TAB 12/12/24 Pregabalin (Pregabalin) 25 Mg Capsule, 25 MG PO AM, CAP 12/12/24 Latanoprost (Latanoprost) 0.005 % Drops, 2.5 ML OP PM, DROP 12/12/24 Meloxicam (Meloxicam) 7.5 Mg Tablet, 7.5 MG PO AM, TAB 12/12/24 Mirabegron (Myrbetriq) 50 Mg Tab.er.24h, 1 TAB PO DAILY for 30 Days, #30 TAB 0 Refills 05/31/24 Oxybutynin Chloride (Oxybutynin Chloride) 5 Mg Tablet, 1 TAB PO DAILY for urinary discomfort for 30 Days, #60 TAB 0 Refills 05/31/24 Gabapentin (Gabapentin) 100 Mg Capsule, 1 CAP PO DAILY for 30 Days, #90 CAP 0 Refills 05/31/24 Levothyroxine Sodium (Levothyroxine) 50 Mcg Capsule, 50 MCG PO AM, CAP 07/13/22 Rosuvastatin Calcium (Rosuvastatin Calcium) 20 Mg Tablet, 20 MG PO HS, TAB 07/13/22 Prednisone (Prednisone) 5 Mg Tablet, 5 MG PO HS, TAB 07/13/22 Discontinued Reported Medications Nitrofurantoin Macrocrystal (Nitrofurantoin) 100 Mg Capsule, 1 CAP PO BID for 7 Days, #14 CAP 0 Refills 05/31/24 Carvedilol (Carvedilol) 6.25 Mg Tablet, 1 TAB PO BID for 30 Days, #60 TAB 0 Refills 05/31/24 Folic Acid (Folic Acid) 0.8 Mg Capsule, 1 MG PO DAILY, CAP 05/31/24 Furosemide (Furosemide) 20 Mg Tablet, 1 TAB PO BID for 30 Days, #30 TAB 0 Refills 05/31/24 Sulfasalazine (Azulfidine) 500 Mg Tablet, 1 TAB PO DAILY for 30 Days, #90 TAB 0 Refills 05/31/24 Tizanidine HCl (Tizanidine HCl) 2 Mg Tablet, 2 MG PO BID, TAB 05/31/24 Baclofen (Baclofen) 20 Mg Tablet, 1 TAB PO TID for 30 Days, #90 TAB 0 Refills 05/31/24 Latanoprost/Pf (Latanoprost 0.005% Eye Drop) 7.5 Ml Drops, 1 DROP OU HS, DROP 07/14/22 Amlodipine Besylate (Amlodipine Besylate) 10 Mg Tablet, 10 MG PO AM for 30 Days, #30 TAB 0 Refills 07/13/22 Losartan Potassium (Losartan Potassium) 100 Mg Tablet, 100 MG PO NOON, TAB 07/13/22 Ibuprofen (Ibuprofen 200 mg Tablet) 200 Mg Tablet, 200 MG PO TID PRN for PAIN, TAB 07/13/22 Cholecalciferol (Vitamin D3) (Vitamin D3) 125 Mcg Tablet, 125 MCG PO PM, TAB 07/13/22 Ascorbic Acid (Vitamin C) 1,000 Mg Tablet, 1000 MG PO HS, TAB 07/13/22 Discontinued Scripts Cefpodoxime Proxetil (Cefpodoxime Proxetil) 200 Mg Tablet, 200 MG PO BID for 10 Days, #20 TAB Prov:TRIRODGER Clayton 05/31/24 Docusate Sodium (Colace) 100 Mg Capsule, 100 MG PO BID PRN for CONSTIPATION for 30 Days, #60 CAP 0 Refills Prov:DESIRAE AVELAR MD 07/16/22 Hydrocodone/Acetaminophen (Hydrocodon-Acetaminophen 5-325) 1 Each Tablet, 1-2 T AB PO Q6H PRN for MODERATE/SEVERE PAIN LEVEL, #56 TAB 0 Refills Prov:DESIRAE AVELRA MD 07/16/22 Polyethylene Glycol 3350 (Miralax) 17 Gm Powd.pack, 17 GM PO DAILY, #30 PACK 0 Refills Prov:DESIRAE AVELAR MD 07/16/22 Cyclobenzaprine HCl (Cyclobenzaprine HCl) 10 Mg Tablet, 5 MG PO Q8H PRN for MUSCLE SPASMS, #45 TAB 0 Refills Prov:DESIRAE AVELAR MD 07/16/22 Aspirin (Aspirin) 325 Mg Tablet, 325 MG PO DAILY, #30 TAB 0 Refills Prov:DESIRAE AVELAR MD 07/16/22 DESIRAE AVELAR MD December 12, 2024 07:25
[2024-12-12] MEDS ORDERED: PoTASSium chloRIDE 20MEQ/100ML 100 ML IV PRN (07:30)
[2024-12-12] MEDS: ketOROlac 15MG/ML VIAL (15MG/ML) IV SCH (07:30)
[2024-12-12] MEDS ORDERED: HYDROcodone/APAP 5/325 1 TAB TABLET PO PRN ×2 (07:30→08:00)
[2024-12-12] MEDS ORDERED: PoTASSium chloRIDE 20MEQ ER 20 MEQ ERTAB PO PRN (07:30)
[2024-12-12] MEDS ORDERED: ondanSETRON 4MG INJ IVP PRN (07:30)
[2024-12-12] MEDS ORDERED: CALCIUM CARB 500MG PO PRN (07:30)
[2024-12-12] MEDS ORDERED: FERROUS FUMARATE 324 MG TABLET PO PRN (07:30)
[2024-12-12] MEDS ORDERED: PoTASSium chl 10% ELIXIR 20MEQ 20 MEQ/15 ML UDCUP PO PRN (07:30)
[2024-12-12] MEDS ORDERED: dexaMETHasone SOD PHOSPHATE 10MG/ML 1ML VIAL ONE (07:33)
[2024-12-12] MEDS ORDERED: ondanSETRON 4MG INJ ONE (07:33)
[2024-12-12] MEDS: ceFAZolin SODIUM 2 GM VIAL IVPB ONE (07:35)
[2024-12-12] MEDS: TRANEXAMIC ACID 1000MG/10ML ONE (07:35)
[2024-12-12] MEDS ORDERED: ePHEDrine SULFate 50 MG/ML AMPULE ONE (07:49)
[2024-12-12] MEDS: ceFAZolin SODIUM 2 GM VIAL ONE (07:51)
[2024-12-12] MEDS: LACTATED RINGERS 1000ML 1,000 ML IV ONE (07:51)
[2024-12-12] MEDS ORDERED: GLYCOPYRROLATE 0.2 MG/ML 5 ML VIAL ONE (08:17)
[2024-12-12] MEDS ORDERED: NEOSTIGMINE METHYLSULFATE 1MG/ML IV ONE (08:17)
[2024-12-12] MEDS: ROPivacaine 0.5% 5MG/ML 30ML ONE (08:21)
[2024-12-12] MEDS: ketOROlac 30MG VIAL (30MG/ML) ONE (08:21)
[2024-12-12] MEDS: TRANEXAMIC ACID 1000MG/10ML IJ ONE (08:55)
[2024-12-12] MEDS: polyETHYLene GLYCol 3350 17 GM POWD.PACK PO SCH (09:00)
[2024-12-12] MEDS ORDERED: MELOXICAM 7.5 MG TABLET PO SCH (09:00)
[2024-12-12] MEDS ORDERED: pregABALin 25 MG CAP PO SCH (09:00)
[2024-12-12] MEDS: carVEDIlol 25 MG TABLET PO SCH (09:00)
[2024-12-12] MEDS: doCUSate SODIUM 100 MG CAP PO SCH (09:00)
[2024-12-12] MEDS: GABApentin 100 MG CAPSULE PO SCH (09:00)
[2024-12-12] MEDS: MIRABEGRON 50 MG PO SCH (09:00)
[2024-12-12] MEDS: FOLic ACID 1 MG TABLET PO SCH (09:00)
--- NOTE | 2024-12-12 09:05 | OP ---
Operative Note: DATE OF PROCEDURE: 12/12/24 PREOPERATIVE DIAGNOSIS: Left knee osteoarthritis. POSTOPERATIVE DIAGNOSIS: Left knee osteoarthritis. PROCEDURE PERFORMED: Left knee total knee arthroplasty. SURGEON: Ana Peters MD CRUSHER LOADER EQUIPMENT OPERATOR: Neena Herron. ANESTHESIA: General with adductor canal block. ANESTHESIA: DOMINICK Uribe. ESTIMATED BLOOD LOSS: 50cc. COMPLICATIONS: None. DRAINS: None. SPECIMENS REMOVED: resected bone. Not sent to pathology. IMPLANTS: [employer] II BCS size 4 Oxinium femur, size 3 tibial base plate, 32 x 7.5 mm patella, 9 mm polyethylene STATEMENT OF MEDICAL NECESSITY: The patient is a 74-year-old female who suffers from left knee osteoarthritis failing conservative management. After discussion of the risks, benefits, and alternatives with the patient, they voluntarily agreed to undergo the aforementioned procedure. DESCRIPTION OF PROCEDURE: Patient was properly identified in the preoperative holding area. Surgical site marking was verified and surgery consent reviewed. The patient was then taken to the operating room and placed in supine position on the OR table. After induction of general anesthesia, preoperative antibiotics were given, all bony prominences were well-padded, and a well padded tourniquet was applied but not inflated at this time. The left lower extremity was then prepped and draped in usual sterile fashion. Surgical time out was done verifying correct surgery, side, site, and location to be performed. We then began the procedure by exsanguinating the limb using an Esmarch and inflating the tourniquet to 350 mmHg. At this point, we made an anterior midline incision using a 10 blade, coming down sharply the level of the fascia. Skin flaps were elevated medially and laterally. We then obtained a clean 10 blade and performed a standard medial parapatellar arthrotomy. We excised the infrapatellar fat pad. We performed our soft tissue releases off of the tibia. We transected the ACL and removed the anterior portion of the medial & lateral meniscus. We then brought the knee into hyperflexion with the patella everted. We used our entry reamer to enter the femoral canal. We then placed our intramedullary cutting guide for our distal femoral cutting block. We then performed our distal femoral osteotomy ensuring appropriate rotation and removed the bony wafer. We then removed these pins and block and then used jig 2 to size the distal femur with the after mentioned size found. We then placed our 5-in-1 cutting block in 4.5 degrees of external rotation and took our 5 cuts ensuring to protect the patellar tendon and the collateral ligaments. We then removed the cutting block and our bony fragments using a curved osteotome. We then placed our PCL retractor subluxating the tibia anteriorly. Using an extra medullary tibial cutting guide, we hung the block for our proximal tibial cut taking 2 mm off the more diseased portion. Prior to pinning this block in place, we ensured appropriate varus/valgus alignment and posterior slope similar to the chitina slope of the patient's knee. We then performed our proximal tibial osteotomy and removed the bony wafer using Bovie electrocautery to release any remaining soft tissue attachments. We then used our tibial sizing paddle and checked once more for varus & valgus alignment and found this to be appropriate. At this point, we pinned our tibial paddle in place. We then removed the PCL retractor and subluxated the tibia posteriorly while we placed our femoral trial component. We then finished preparing the notch with the reamer and box chisel. The notch portion of the trial femoral component was then placed. A posterior stabilized polyethylene, size 9 trial was placed. The knee was then taken through range of motion and found to have stable full range of motion. We then placed a bump under the ankle and everted the patella to perform our freehand cut of the undersurface the patella. We then sized our patella and reamed to the lug holes for this. We placed our trial patellar component and begin to take the knee through range of motion. The patella had significant lateral tracking so we performed a lateral release. We then checked tracking once more noted mild lateral tracking continued. We elected to use a 7 .5 mm thickness component. At this point we began removing our trial components and punched the tibial keel prior to removing our tibial trial component. Final components were opened and cement was mixed on the back table while we injected local cocktail in the posterior capsule. We then thoroughly irrigated out the bone and dried the bony surfaces. We cemented our tibial component in place ensuring to remove excess cement and placed our trial polyethylene. We then cemented our femoral component in place once again taking time to ensure excess cement was removed leg was brought into full extension to help squeeze the excess cement from around the femoral component. We then brought the knee back in a flexion to remove this portion of the cement at this point we placed the ankle in a bump thoroughly irrigated off the patellar component and cemented our patellar component in standard fashion again removing excess cement. While we waited for the cement to cure, we thoroughly irrigated out the wound w ith normal saline. Once our cement had cured, we took the knee through a range of motion and found full and stable range of motion. We then elected to use the size 9 polyethylene and removed our trial polyethylene. We impacted our final polyethylene component in place in standard fashion and took the knee through a range of motion check once more. This was satisfactory so we began to repair the arthrotomy using #1 Vicryl in interrupted [id number] fashion. Subcutaneous tissue was repaired using 2-0 Vicryl. Running subcuticular 3-0 Monocryl stitch with Dermabond placed over this for the skin. We then applied a foam barrier dressing and a pressure dressing consisting of 4 x 4's fluffs and an Juan wrap. The tourniquet was then deflated. Patient was awakened from anesthesia, and they were taken to the recovery room in stable condition. ANA PETERS MD December 12, 2024 09:05
[2024-12-12] MEDS: ketOROlac 15MG/ML VIAL (15MG/ML) ONE (09:53)
--- NOTE | 2024-12-12 10:34 | HMCIMG ---
KNEE/PATELLA 1-2VWS LT HISTORY: Post surgery COMPARISON: None TECHNIQUE: 2 images of left knee were obtained. FINDINGS: Total left knee replacement changes are seen. Soft tissue emphysema is seen consistent with postop changes. There is no acute displaced fracture or dislocation. There is soft tissue swelling. Degenerative changes are seen. IMPRESSION: 1. Findings as described above.
[2024-12-12] MEDS ORDERED: hydrALAZine HCL 10 MG TABLET PO ONE (13:00)
[2024-12-12] MEDS: hydrALAZine 20MG/ML VIAL IV ONE (13:08)
[2024-12-12] MEDS: hydrALAZine HCL 10 MG TABLET ONE (13:12)
[2024-12-12] MEDS: 0.9%NACL 1000ML 1,000 ML IV SCH (13:15)
--- NOTE | 2024-12-12 14:00 | NUR ---
Patient seen and evaluated. Attempted to ambulate patient however upon taking first step, patient left knee buckled needing max assistance to recover balance. Patient was placed back in bed and nurse, Antoni, notified. Left note on patient comm and nursing comm board for nursing to not get patient up until reassessed in the morning due to lack of LLE control. Patient plans to go to SNF for rehab upon DC. PT team to follow.
[2024-12-12] MEDS: acetaMINOPHEN 100 ML ONE (14:03)
[2024-12-12] MEDS: GABApentin 100 MG CAPSULE ONE (14:03)
[2024-12-12] MEDS: FAMOTIDINE 20MG VIAL IV ONE (14:03)
--- NOTE | 2024-12-12 14:30 | NUR ---
ORTHO COORDINATOR: TEACHING REGARDING DVT AND PNEUMONIA PREVENTION, PAIN EXPECTATIONS AND PAIN MANAGEMENT. PATIENT IN BED, FAMILY AT BEDSIDE. ICE PACK TO SURGICAL SITE. NO HOSPITAL STAFF DEVELOPMENT NURSE AVAILABLE, FAMILY ASSISTED. B SCD SLEEVES IN PLACE AND FUNCTIONING. INCENTIVE SPIROMETER ON BEDSIDE TRAY. PATIENT RETURN DEMONSTRATED PROPER USE OF INCENTIVE SPIROMETER AND FOOT FLEXION/EXTENSION EXERCISES. PATIENT ABLE TO VERBALIZED FREQUENCY OF USE OF INCENTIVE SPIROMETER. PAIN EXPECTATIONS REALISTIC. PATENT HAD R KNEE REPLACEMENT IN 2021. REVIEWED NUMERIC PAIN SCALE. PATIENT ENCOURAGED TO SET AN ALARM FOR EVERY FOUR HOURS AND PERFORM A SELF PAIN ASSESSMENT. PATIENT TO ASSIGN A NUMERIC PAIN VALUE AND TYPE OF PAIN AND CALL TO NURSE SO PROPER MEDICATION CAN BE ADMINISTERED. REMINDED PATIENT PAIN MEDICATIONS MUST BE REQUESTED. PAIN CURRENTLY MANAGED. EXPECTATIONS SET FOR PATIENT TO SHOWER TOMORROW, RATIONALE PROVIDED. PATIENT AND FAMILY VERBALIZED UNDERSTANDING TO ALL INSTRUCTIONS. NO ADDITIONAL QUESTIONS/CONCERNS AT THIS TIME.
[2024-12-12] MEDS: ceFAZolin SODIUM 2 GM VIAL IVPB SCH (14:43)
--- NOTE | 2024-12-12 15:46 | NUR ---
[facility] CM MET WITH PT, PATIENT SLEEPY, ASKED IF OKAY TO HAVE DAUGHTER ON SPEAKER TO DISCUSSED DCP, PT AGREEABLE. PUT DAUGHTER AGUSTIN THOMAS ON SPEAKER, INITIAL ASSESSMENT DONE. PT IS SEMI-INDEPENDENT PRIOR TO SURGERY, LIVES AT HOME WITH HER SON RADHA ORTEGA . PATIENT HAS A STANDARD WALKER, SHOWER CHAIR, WHEELCHAIR, CPAP, BPM. DENIES ANY OTHER EQUIPMENT/SERVICES. FEELS SAFE TO GO BACK HOME, SON ABLE TO ASSIST WITH TRANSPORTATION AND NEEDS NECESSARY. DISCUSSED MD RECOMMENDATION FOR REHAB AT [facility], GIVEN IN NETWORK FACILITIES, PT AND DAUGHTER AGREEABLE FOR [facility], PT REQUEST DAUGHTER TO GIVE CONSENT, OBTAINED TELEPHONE CONSENT IONA FOR [facility] WITNESSED BY GERMAN SOTEOL. [facility] ONCE APPROVED. PT CURRENTLY PENDING PT EVAL NOTES AT THIS TIME. CM TO CONTINUE TO FOLLOW UP. Addendum: 12/12/24 at 1551 by RADHA GAINES LVN CM Amended: Links added.
[2024-12-12] MEDS: LATANOPROST 2.5 ML DROPS OP SCH (21:00)
[2024-12-12] MEDS ORDERED: predniSONE 5 MG TABLET PO SCH (21:00)
[2024-12-12] MEDS: atorVAStatin 40 MG TABLET PO SCH (21:38)
[2024-12-13] VITALS (9 sets, daily range): BP systolic 120–148; BP diastolic 48–73; PULSE 58–72; RESP 16–20; TEMP 97.7–98.3; O2SAT 96–99
[2024-12-13 04:49] LABS: HEMATOCRIT 29.2 % (36-48); MEAN CORPUSCULAR HEMOGLOBIN 32.5 pg (27.0-33.0); MEAN CORPUSCULAR HGB CONC 32.9 g/dL (32.0-36.0); RED BLOOD CELL COUNT(AUTO) 2.95 MIL/uL (4.00-5.50); RED CELL DISTRIBUTION WIDTH 14.1 % (11.0-15.5); WHITE BLOOD COUNT (AUTO) 15.4 K/uL (4.8-10.8)
[2024-12-13 05:00] LABS: POTASSIUM 4.5 mmol/L (3.5-5.1)
[2024-12-13] MEDS: HYDROcodone/APAP 5/325 1 TAB TABLET PO PRN (07:08)
[2024-12-13] MEDS: levoTHYROxine 50 MCG TABLET PO SCH (07:10)
--- NOTE | 2024-12-13 07:55 | PN ---
Ortho postop day one. This morning the patient is awake alert and oriented. Reporting adequate pain control. She is seated in chair enjoing her breakfast. She is alternating foot extensions on a footstool as well as flexion. The Juan bandage has been removed and the dressing is intact anteriorly. SCD sleeves on but not connected. Vital signs have been stable. Afebrile. Laboratory results reviewed. Noted to have a drop in hemoglobin hematocrit as expected after TKA. Patient currently is asymptomatic we will address per protocol as necessary. Operative findings discussed with the patient. Reinforced incentive spirometry. Reinforced ice to operative site throughout the day. Voiding on her own. Did not have the opportunity to do any physical therapy yesterday and pending therapy this morning Anticipated discharge goal senior living facility. Assessment: Status post left total knee arthroplasty. Asymptomatic acute postoperative blood loss anemia. Plan: Continue with Dr. Peters's TKA protocol and discharge planning. Acute postoperative blood loss anemia addressed with the protocol as necessary Vitals/Labs Vital Signs Date Time Temp Pulse Resp B/P (MAP) Pulse Ox O2 Delivery O2 Flow Rate FiO2 12/13/24 06:28 72 18 N/A Room Air 21 12/13/24 04:30 97.7 139/51 95 12/12/24 22:55 2.0 Laboratory Tests 12/13/24 04:02 Medications Current Medications Cefazolin Sodium 2 gm STK-MED ONCE .ROUTE; Start 12/12/24 at 06:14; Stop 12/12/24 at 06:15; Status DC Lactated Ringer's 1,000 ml @ As Directed STK-MED ONCE IV Last administered on 12/12/24at 07:51; Start 12/12/24 at 06:15; Stop 12/12/24 at 06:15; Status DC Gabapentin 100 mg STK-MED ONCE .ROUTE; Start 12/12/24 at 06:32; Stop 12/12/24 at 06:32; Status DC Acetaminophen 100 ml @ As Directed STK-MED ONCE .ROUTE; Start 12/12/24 at 06:32; Stop 12/12/24 at 06:32; Status DC Famotidine 20 mg STK-MED ONCE IV; Start 12/12/24 at 06:32; Stop 12/12/24 at 06:32; Status DC Bupivacaine HCl 5 mg STK-MED ONCE .ROUTE; Start 12/12/24 at 06:36; Stop 12/12/24 at 06:36; Status DC Ketorolac Tromethamine 30 mg STK-MED ONCE .ROUTE Last administered on 12/12/24at 08:21; Start 12/12/24 at 06:36; Stop 12/12/24 at 06:36; Status DC Ropivacaine 150 mg STK-MED ONCE .ROUTE Last administered on 12/12/24at 08:21; Start 12/12/24 at 06:40; Stop 12/12/24 at 06:40; Status DC Ropivacaine 150 mg STK-MED ONCE .ROUTE; Start 12/12/24 at 06:41; Stop 12/12/24 at 06:41; Status DC Ketamine HCl 50 mg STK-MED ONCE .ROUTE; Start 12/12/24 at 06:42; Stop 12/12/24 at 06:42; Status DC Lidocaine HCl 100 mg STK-MED ONCE .ROUTE; Start 12/12/24 at 06:47; Stop 12/12/24 at 06:48; Status DC Propofol 200 mg STK-MED ONCE IV; Start 12/12/24 at 06:48; Stop 12/12/24 at 06:48; Status DC Rocuronium [place] 50 mg STK-MED ONCE .ROUTE; Start 12/12/24 at 06:48; Stop 12/12/24 at 06:49; Status DC Fentanyl Citrate 100 mcg STK-MED ONCE .ROUTE; Start 12/12/24 at 06:48; Stop 12/12/24 at 06:49; Status DC Sodium Chloride 1,000 ml @ 100 mls/hr Q10H IV Last administered on 12/12/24at 13:15; Start 12/12/24 at 07:30; Stop 12/13/24 at 07:29; Status DC Polyethylene Glycol 17 gm DAILY PO; Start 12/12/24 at 09:00; Stop 01/11/25 at 08:59 Bisacodyl 10 mg DAILY PRN RC; Start 12/15/24 at 07:30; Stop 01/14/25 at 07:29 Ketorolac Tromethamine 15 mg Q6H PRN IV; Start 12/13/24 at 07:30; Stop 12/18/24 at 07:29 Ferrous Fumarate 324 mg DAILY PRN PO; Start 12/12/24 at 07:30; Stop 01/11/25 at 07:29 Ondansetron HCl 4 mg Q6H PRN IVP; Start 12/12/24 at 07:30; Stop 01/11/25 at 07:29 Calcium Carbonate 500 mg Q12H PRN PO; Start 12/12/24 at 07:30; Stop 01/11/25 at 07:29 Cefazolin Sodium 2 gm Q8H IVPB Last administered on 12/12/24at 21:39; Start 12/12/24 at 14:00; Stop 12/12/24 at 22:01; Status DC Cyclobenzaprine HCl 5 mg Q8H PRN PO; Start 12/12/24 at 07:30; Stop 01/11/25 at 07:29 Gabapentin 100 mg TID PO Last administered on 12/12/24at 21:38; Start 12/12/24 at 09:00; Stop 01/11/25 at 08:59 Aspirin 325 mg DAILY PO; Start 12/13/24 at 09:00; Stop 01/12/25 at 08:59 Ketorolac Tromethamine 15 mg Q8H IV Last administered on 12/13/24at 00:20; Start 12/12/24 at 07:30; Stop 12/12/24 at 23:31; Status DC Docusate Sodium 100 mg BID PO Last administered on 12/12/24at 21:38; Start 12/12/24 at 09:00; Stop 01/11/25 at 08:59 Potassium Chloride 100 ml @ 100 mls/hr AD PRN IV; Start 12/12/24 at 07:30; Stop 01/11/25 at 07:29 Potassium Chloride 20 meq AD PRN PO; Start 12/12/24 at 07:30; Stop 01/11/25 at 07:29 Potassium Chloride 20 meq AD PRN PO; Start 12/12/24 at 07:30; Stop 01/11/25 at 07:29 Tramadol HCl 50 mg Q6H PRN PO; Start 12/12/24 at 07:30; Stop 12/17/24 at 07:29 Acetaminophen/ Hydrocodone Bitart Q4H PRN PO; Start 12/12/24 at 07:30; Stop 12/12/24 at 07:42; Status DC Carvedilol 25 mg AM PO; Start 12/12/24 at 09:00; Stop 01/11/25 at 08:59 Folic Acid 1 mg AM PO; Start 12/12/24 at 09:00; Stop 01/11/25 at 08:59 Latanoprost 1 DROP PM OP; Start 12/12/24 at 21:00; Stop 01/11/25 at 20:59 Meloxicam 7.5 mg AM PO; Start 12/12/24 at 09:00; Stop 12/12/24 at 07:37; Status DC Prednisone 5 mg HS PO; Start 12/12/24 at 21:00; Stop 12/12/24 at 21:47; Status DC Pregabalin 25 mg AM PO; Start 12/12/24 at 09:00; Stop 12/12/24 at 07:38; Status DC Levothyroxine Sodium 50 mcg SYN PO Last administered on 12/13/24at 07:10; Start 12/13/24 at 06:30; Stop 01/12/25 at 06:29 Home Med MIRABEGRON 50MG ER TAB DAILY PO; Start 12/12/24 at 09:00; Stop 01/11/25 at 08:59 Atorvastatin Calcium 80 mg HS PO Last administered on 12/12/24at 21:38; Start 12/12/24 at 21:00; Stop 01/11/25 at 20:59 Ondansetron HCl 4 mg STK-MED ONCE .ROUTE; Start 12/12/24 at 07:33; Stop 12/12/24 at 07:33; Status DC Dexamethasone Sodium Phosphate 10 mg STK-MED ONCE .ROUTE; Start 12/12/24 at 07:33; Stop 12/12/24 at 07:33; Status DC Tranexamic Acid 1,000 mg STK-MED ONCE .ROUTE Last administered on 12/12/24at 07:35; Start 12/12/24 at 07:36; Stop 12/12/24 at 07:36; Status DC Acetaminophen/ Hydrocodone Bitart 1 tab Q4H PRN PO; Start 12/12/24 at 08:00; Stop 12/17/24 at 07:59 Acetaminophen/ Hydrocodone Bitart 2 tab Q4H PRN PO Last administered on 12/13/24at 07:08; Start 12/12/24 at 08:00; Stop 12/17/24 at 07:59 Ephedrine Sulfate 50 mg STK-MED ONCE .ROUTE; Start 12/12/24 at 07:49; Stop 12/12/24 at 07:49; Status DC Cefazolin Sodium 2 gm STK-MED ONCE IVPB Last administered on 12/12/24at 07:35; Start 12/12/24 at 07:35; Stop 12/12/24 at 08:02; Status DC Glycopyrrolate 1 mg STK-MED ONCE .ROUTE; Start 12/12/24 at 08:17; Stop 12/12/24 at 08:17; Status DC Neostigmine Methylsulfate 10 mg STK-MED ONCE IV; Start 12/12/24 at 08:17; Stop 12/12/24 at 08:17; Status DC Tranexamic Acid 1,000 mg STK-MED ONCE IJ Last administered on 12/12/24at 08:55; Start 12/12/24 at 08:55; Stop 12/12/24 at 09:36; Status DC Ketorolac Tromethamine 15 mg STK-MED ONCE .ROUTE Last administered on 12/12/24at 09:53; Start 12/12/24 at 09:51; Stop 12/12/24 at 09:52; Status DC Hydralazine HCl 10 mg ONCE ONCE PO; Start 12/12/24 at 13:00; Stop 12/12/24 at 12:56; Status DC Hydralazine HCl 10 mg ONCE ONCE IV; Start 12/12/24 at 13:00; Stop 12/12/24 at 13:01; Status DC Hydralazine HCl 10 mg STK-MED ONCE .ROUTE Last administered on 12/12/24at 13:12; Start 12/12/24 at 13:09; Stop 12/12/24 at 13:09; Status DC Prednisone 5 mg QODAYHS PO; Start 12/13/24 at 21:00; Stop 01/11/25 at 20:59 CRYSTAL MOSER NP December 13, 2024 07:55
[2024-12-13] MEDS: ASPIRIN 325MG EC TAB PO SCH (09:25)
[2024-12-13] MEDS: ketOROlac 15MG/ML VIAL (15MG/ML) IV PRN (09:33)
[2024-12-13] MEDS: CYCLOBENZAPRINE HCL 10 MG TABLET PO PRN (13:22)
[2024-12-13] MEDS: traMADol HCL 50 MG TABLET PO PRN (13:22)
[2024-12-13] MEDS: predniSONE 5 MG TABLET PO SCH (20:17)
[2024-12-14 03:01] VITALS: BP 138/60; PULSE 70; RESP 20; TEMP 98.2
[2024-12-14 08:00] VITALS: BP 118/54; PULSE 58; RESP 19; TEMP 98.5; O2SAT 98
[2024-12-14 12:00] VITALS: BP 150/72; PULSE 56; RESP 19; TEMP 98
--- NOTE | 2024-12-14 15:14 | NUR ---
SNF Auth Escalated Emailed [facility] post-acute facility group to escalate auth. Request emailed to: Selina Villa RN [email or web address]>; Cailin Womack NP <[email or web address]>; Antoni Rea <[email or web address]>; Bisi Alonso RN <[email or web address]>; [email or web address]; [email or web address]; Julita Ferguson <[email or web address]>; Shahida Harris <[email or web address]>; [email or web address]; Sahra Oglesby RN <[email or web address]>; [email or web address]; Janes Capellan ([facility]) <[email or web address]>; Ines Hodges <[email or web address]> Addendum: 12/14/24 at 1515 by JESUS KHANNA CM Amended: Links added.
--- NOTE | 2024-12-14 15:15 | NUR ---
ORTHO COORDINATOR: REINFORCED TEACHING. PATIENT UP TO CHAIR, MULTIPLE FAMILY MEMBERS AT BEDSIDE. NO HOSPITAL PROSTHETIST AVAILABLE, FAMILY USED TO TRANSLATE. PATIENT GETS ANXIETY BEFORE ATTEMPTING TO WALK OR MOVE, RELATED TO ANTICIPATION OF PAIN. PAIN LEVEL AT AM PHYSICAL THERAPY VISIT PER PATIENT WAS 4/10. I REASSURED HER THAT WAS EXCELLENT. PAIN MANAGEMENT STRATEGY WORKING, ENCOURAGED PATIENT AND FAMILY MEMBERS TO CONTINUE SELF PAIN ASSESSMENTS AND REQUESTING PAIN MEDICATION BY NUMERIC VALUE. DISCUSSED THE MORE SHE AMBULATED, SHE WOULD BECOME MORE CONFIDENT AND THE PAIN WOULD DECREASE. ENCOURAGED FAMILY TO HELP REINFORCE AND BUILD CONFIDENCE. PATIENT USING INCENTIVE SPIROMETER. SCD MACHINE IN ROOM, OFF DUE TO BEING UP TO CHAIR. SET EXPECTATION FOR PATIENT TO SHOWER TODAY. FAMILY AND PATIENT VERBALIZED UNDERSTANDING AND NEW GOAL. NO ADDITIONAL QUESTIONS/CONCERNS AT THIS TIME. Addendum: 12/14/24 at 1715 by ESTEPHANIA ARELLANO RN RN DISREGARD ENTRY. 1515 ORTHO COORDINATOR: REINFORCED TEACHING. PATIENT UP TO CHAIR, FAMILY AT BEDSIDE. NO PROSTHETIST USED, PATIENT RESPONDED TO NIGERIAN QUESTIONS WITH NIGERIAN ANSWERS. REPORTS PAIN, BUT MANAGEABLE. UNDERSTANDS IT WILL HURT. PATIENT REPORTS SHOWERING LAST NIGHT. ENCOURAGED PATIENT TO CONTINUE PREMEDICATING PRIOR TO PHYSICAL THERAPY AND DURING PERIODS OF HIGH ACTIVITY, CONTINUE INCENTIVE SPIROMETER AND FOOT FLEXION/EXTENSION EXERCISES. DISCUSSED NEXT STEPS WITH REGARDS TO REHAB. PATIENT VERBALIZED UNDERSTANDING. NO ADDITIONAL QUESTIONS/CONCERNS.
[2024-12-14 16:00] VITALS: BP 118/67; PULSE 57; RESP 18; TEMP 98.2
[2024-12-14] MEDS ORDERED: HYDR-4060 PO (16:48)
[2024-12-14] MEDS ORDERED: ASPI-891 PO (16:48)
[2024-12-14] MEDS ORDERED: DOCU-116 PO (16:48)
[2024-12-14] MEDS ORDERED: GABA100C PO (16:48)
[2024-12-14] MEDS ORDERED: CYCL-309 PO (16:48)
--- NOTE | 2024-12-14 18:30 | NUR ---
PT BEING DC'D TO [facility] PER MD ORDER. PT GIVEN DC INSTRUCTION AND PROVIDED WITH A F/U APPT DATE WITH DR AVELAR. PT STATED UNDERSTANDING. CALLED REPORT TO HANNAH AT FACILITY. IV REMOVED TIP INTACT. PT SON AWARE OF DC PLAN. PENDING TRANSPORTATION.
--- NOTE | 2024-12-14 19:15 | NUR ---
PT DC'D TO [facility] PICKED UP PT AND CHART COPY SENT.
[2024-12-15] MEDS ORDERED: BisaCODYL 10 MG SUPP.RECT RC PRN (07:30)
== END 2024-12-14 19:15 ==
LOC: DAH 05:51 → DAHIP 05:52 → DAH 05:52 → 4BH 10:35
PROVIDERS: ADMIT Student in an Organized Health Care Education/Training Program; ATTEND Student in an Organized Health Care Education/Training Program
DX: M17.12 Unilateral primary osteoarthritis, left knee (principal); D62 Acute posthemorrhagic anemia; Z79.899 Other long term (current) drug therapy
CPT/HCPCS: 82040; 80048 ×2; 85025; 85610; 85730; 84134; 86140; 36415 ×2; 87641; 27447; 96376 ×2; 96365; 96375; 87086 ×2; 87186; 81001; 73560; 97161; 97530 ×7; 85027; 97116 ×4; G0378 ×54; A4223 ×2; J7120; J3490 ×7; J3010; J1100; J2003; J2704; J2405; J1885 ×5; J2710; J2795 ×2; J0690 ×4; C1713 ×2; C1776 ×2; A4649 ×2; A4930 ×2; A6255; A5120; A4215; A4213; A4222; A4221; A4216; J7512; J0665